=== PATIENT | male | born 1960 | race Caucasian/White ===

== ENCOUNTER 2017-12-23 01:07 | Inpatient (IN) | payer MEDICARE ==
[2017-12-23 01:07] VITALS: BMI 27.6
[2017-12-23 01:17] VITALS: RESP 16; TEMP 102.7; O2SAT 100
[2017-12-23] MEDS ORDERED: Propofol 10 mg/ml Inj (20 ML) ONE (01:19)
[2017-12-23 01:28] LABS: BASO # 0.1 K/uL (0.0-0.2); BASO % 0.3 % (0.0-2.0); EOS % 0.1 % (0.0-4.0); HEMOGLOBIN 7.2 g/dL (12.0-18.0); LYMPH # 0.4 K/uL (1.0-4.3); LYMPH % 2.1 % (20.0-40.0); MEAN CELL VOLUME 86.7 fL (80.0-94.0); MEAN CORPUSCULAR HEMOGLOBIN 29.5 pg (27.0-31.0); MONO # 0.5 K/uL (0.0-0.8); MONO % 2.6 % (0.0-10.0); NEUT # 17.2 K/uL (1.8-7.0); NEUT % 94.9 % (50.0-75.0); PLATELET COUNT 471 K/uL (130-400); RBC 2.44 Mil/uL (4.40-5.90); WHITE BLOOD COUNT 18.1 K/uL (4.8-10.8)
[2017-12-23] MEDS ORDERED: Piperacillin/Tazobact 3.375 gm 100 ML IVPB ONE (01:29)
--- NOTE | 2017-12-23 01:33 | C.PDOC ---
History Of Present Illness pt was found unresponsive , hypotensive at home. medics gave 1 500 cc nss bolus , mild improvement in blood pressure, started another 500cc of nss started. Received pt in respiratory distress, pt agonal. Time Seen by Provider: 12/23/17 01:30 Chief Complaint (Nursing): Altered Mental Status Past Medical History Reviewed: Historical Data, Nursing Documentation, Vital Signs Vital Signs: Last Vital Signs Temp 102.7 F H 12/23/17 01:46 Pulse 106 H 12/23/17 01:08 Resp 16 12/23/17 01:08 BP 74/44 L 12/23/17 01:08 Pulse Ox 100 12/23/17 02:38 - Medical History PMH: Diabetes, HTN Denies: Chronic Kidney Disease Surgical History: Tonsillectomy - [facility] Procedures CENTRAL VENOUS CATHETER PLACEMENT WITH GUIDANCE (12/15/14) Family History: States: No Known Family Hx - Social History Hx Alcohol Use: No (UNKNOWN) Hx Substance Use: No (UNKNOWN) - Immunization History Hx Tetanus Toxoid Vaccination: No (UNKNOWN) Hx Influenza Vaccination: No (UNKNOWN) Hx Pneumococcal Vaccination: No (UNKNOWN) Review Of Systems Review Of Systems: ROS cannot be obtained secondary to pt's inabilty to answer questions. Physical Exam - Physical Exam Appears: In Acute Distress Skin: Pale, Mottled Head: Normacephalic Eye(s): bilateral: Other (dilated) Oral Mucosa: Dry Lips: Other (dry) Neck: Supple Chest: Symmetrical, Other (port r chest) Cardiovascular: Rhythm Regular Respiratory: Decreased Breath Sounds, No Rales, Rhonchi, No Wheezing Gastrointestinal/Abdominal: Bowel Sounds (tympanic to percussion), Soft, Distention Back: Normal Inspection Extremity: No Pedal Edema Extremity: Bilateral: Atraumatic Pulses: Left Dorsalis Pedis: Normal, Right Dorsalis Pedis: Normal Neurological/Psych: Other (unresponsive, intubated) Gait: Unable To Assess ED Course And Treatment - Laboratory Results Result Diagrams: 12/23/17 01:25 12/23/17 01:25 ECG: Interpreted By Me, Viewed By Me ECG Rhythm: Sinus Tachycardia (111), Nonspecific Changes O2 Sat by Pulse Oximetry: 100 Pulse Ox Interpretation: Normal (via bvm) - Radiology CXR: Interpreted by Me, Viewed By Me CXR Interpretation: Yes: Other (ett in place, port r chest, diffuse mets). No: Cardiomegaly, Pnemothorax Progress Note: my palced an 18 fr ngt without difficulty. about 250 cc of coffee grounds emesis aspirated. prior to intubation pt did have some emesis with coffee grounds , which was aspirated. spoke with pt's sister. pt has terminal pancreatic cancer. spoke with son, who states that his father was last seen at baseline around 8 pm. 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 spoke with dr duque - icu- will come and see the pt in the ed. 2:35 pt after 6 l ns, still hypotensive, now bradycardic. 1 mg iv epi given Critical Care Time - Critical Care Note Total Time (in mins): 120 Documented critical care: time excludes all time spent performing seperately billable procedures. Endotracheal Intubation - Endotracheal Intubation Intubated With ETT Size: 75 Blade Type Used: Curved Indication: Respiratory Failure, Airway Protection Intubated: Orally Pre-Intubation Airway Assessment: Ventilated And Oxygenated, Does Not Appear To Have A Difficult Airway Paralyzed With: Succinylcholine Post-Intubation Assessment: ETT Secured AT (cm): (26), Breath Sounds Equal Bilat , Placement Confirmed Via CXR, Color Change W/End Tidal CO2 Detector, Oxygen Saturation: (94) Disposition Discussed With Dr.: Danny Vences Comment: accepted the pt on his service and took over the care at 2:30 AM Doctor Will See Patient In The: ED Counseled Patient/Family Regarding: Studies Performed, Diagnosis - Disposition Disposition: HOSPITALIZED Disposition Time: 01:30 Condition: CRITICAL - Clinical Impression Clinical Impression: Respiratory failure, UGI bleed, Pancreatic cancer, Sepsis Decision To Admit - Pt Status Changed To: Hospital Disposition Of: Inpatient - Admit Certification Admit to Inpatient:: After my assessment, the patient will require hospitalization for at least two midnights. This is because of the severity of symptoms shown, intensity of services needed, and/or the medical risk in this patient being treated as an outpatient. - InPatient: Physician Admission Certification:: After my assessment, the patient will require hospitalization for at least two midnights. This is because of the severity of symptoms shown, intensity of services needed, and/or the medical risk in this patient being treated as an outpatient. - . Bed Request Type: ICU Admitting Physician: Danny Vences Patient Diagnosis: Respiratory failure, UGI bleed, Pancreatic cancer, Sepsis
[2017-12-23 01:41] LABS: INR 1.9; PROTHROMBIN TIME 21.2 SECONDS (9.7-12.2)
[2017-12-23 01:42] LABS: ALB/GLOB RATIO 0.6 (1.0-2.1); ALBUMIN 1.5 g/dL (3.5-5.0); ALT/SGPT 34 U/L (21-72); AST/SGOT 36 U/L (17-59); BLOOD UREA NITROGEN 15 mg/dL (9-20); CALCIUM 6.9 mg/dl (8.6-10.4); GFR AFRICAN-AMERICAN > 60; GFR NON-AFRICAN AMERICAN > 60
[2017-12-23] MEDS ORDERED: Piperacill/Tazo 3.375gm in Dex 3.375 GM/50 ML BAG IVPB STA (01:46)
[2017-12-23] MEDS ORDERED: Vancomycin 1 gm/NS 200 ml 1 GM/200 ML BAG IVPB STA (01:46)
[2017-12-23] MEDS ORDERED: Sodium Chloride 0.9% 1,000 ML IV ONE (01:46)
[2017-12-23 01:51] LABS: VENOUS BLOOD GAS BASE EXCESS -11.9 mmol/L (0.0-2.0); VENOUS BLOOD GAS PCO2 31 mmHg (40-60); VENOUS BLOOD GAS PO2 80 mm/Hg (30-55); VENOUS BLOOD PH 7.26 (7.32-7.43)
[2017-12-23 01:54] LABS: URINE BILIRUBIN NEGATIVE (NEGATIVE); URINE BLOOD 1+ (NEGATIVE); URINE CLARITY Hazy (Clear); URINE COLOR Amber (YELLOW); URINE GLUCOSE (UA) 1+ mg/dL (Normal); URINE LEUKOCYTE ESTERASE NEG Leu/uL (Negative); URINE PROTEIN 2+ mg/dL (NEGATIVE); URINE UROBILINOGEN NORMAL mg/dL (0.2-1.0)
[2017-12-23 01:58] LABS: BANDS 8 % (0-2); LYMPHOCYTE 5 % (20-40); MONOCYTE 4 % (0-10); NEUTROPHIL 83 % (50-75); NUCLEATED RED BLOOD CELL 1 % (0-0); PLATELET ESTIMATE NORMAL (NORMAL); TOTAL CELLS COUNTED 100
[2017-12-23 01:59] LABS: ANISOCYTOSIS MODERATE; HYPOCHROMIC SLIGHT; POIKILOCYTOSIS MODERATE; POLYCHROMIC SLIGHT
[2017-12-23] MEDS ORDERED: EPINEPHrine 1 mg/ml (1:1000) Inj ONE (02:36)
[2017-12-23] MEDS ORDERED: Albumin Human 25% (12.5 gm/50 ml) IV ONE (03:00)
--- NOTE | 2017-12-23 03:56 | CP.PCM.CON ---
History of Present Illness - History of Present Illness History of Present Illness: 57 M with h/o hepc treated, hepato-biliary cancer, on chemo, without improvement , cachexia, was noticed slumped in the house, barely breathing. Patient brought in to the ER via ambulance, here noticed hypotensive, hypoxic, febrile 102F, was planned intubation. Coffee ground subscance noticed in the mouth, airway and NG suction. Labs showed anemia of 7.3g, hgb, albumin 1.5g. Urine out put per rubin 5ml. Discussed with Son and sister of patient mentioned, gradual decline, initial chemo didn't work, was going to try another chemo soon. Present in the family 1 sister, 1son and 1 brother, as per her the patients daughter and her had been involved in decision making. Poor prognosis discussed with family and family agreed for DNR, would also discuss in the whole family about palliative care. PMH as above PSH port in right chest Social live with son, ex alcoholism Review of Systems - Review of Systems All systems: reviewed and no additional remarkable complaints except (HPI) Past Patient History - Past Medical History & Family History Past Medical History?: Yes - Past Social History Smoking Status: Unknown If Ever Smoked Alcohol: Occasional - CARDIAC Hx Hypertension: Yes - PULMONARY Hx Respiratory Disorders: No - NEUROLOGICAL Hx Neurological Disorder: No - HEENT Hx HEENT Problems: No - RENAL Hx Chronic Kidney Disease: No - ENDOCRINE/METABOLIC Hx Diabetes Mellitus Type 2: Yes - HEMATOLOGICAL/ONCOLOGICAL Hx Blood Disorders: No - INTEGUMENTARY Hx Dermatological Problems: No - MUSCULOSKELETAL/RHEUMATOLOGICAL Hx Musculoskeletal Disorders: No - GASTROINTESTINAL Hx Gastrointestinal Disorders: No Hx Liver Failure: Yes ("LIVER CIRRHOSIS") - GENITOURINARY/GYNECOLOGICAL Hx Genitourinary Disorders: No - PSYCHIATRIC Hx Substance Use: No (UNKNOWN) - SURGICAL HISTORY Hx Tonsillectomy: Yes - ANESTHESIA Hx Anesthesia: (UNKNOWN) Meds Allergies/Adverse Reactions: Allergies Allergy/AdvReac Type Severity Reaction Status Date / Time No Known Allergies Allergy Verified 12/23/17 01:17 - Medications Medications: Current Medications Acetaminophen (Tylenol 325 Mg Supp) 975 mg [place] ONCE PRN PRN Reason: Fever >100.4 F Last Admin: 12/23/17 01:46 Dose: 975 mg Albumin Human (Albumin Human 25% (12.5 Gm/50 Ml)) 50 mls @ 50 mls/hr IV Q1H DIMITRIS Stop: 12/23/17 06:59 Doxycycline Hyclate 100 mg/ (Sodium Chloride) 100 mls @ 100 mls/hr IVPB Q12H DIMITRIS PRN Reason: Protocol Piperacillin Sod/Tazobactam Sod (Zosyn 2.25 Gm Iv Premix) 2.25 gm in 50 mls @ 100 mls/hr IVPB Q6H DIMITRIS PRN Reason: Protocol Pantoprazole Sodium (Protonix Inj) 40 mg IVP Q12H [facility] Physical Exam - Additional Findings Additional findings: * HEENT unresponsive, but also under effect of recent succinyl choline * Neck supple * Chest rattling noise b/l * CVS tachycardia sinus, no murmur or gallop * PA soft, nt bs present * Ext no edema * Skin dry * LAMP SHADE MAKER unresponsive Results - Vital Signs Recent Vital Signs: Last Vital Signs Temp 102.7 F H 12/23/17 01:46 Pulse 106 H 12/23/17 01:08 Resp 16 12/23/17 01:08 BP 74/44 L 12/23/17 01:08 Pulse Ox 100 12/23/17 03:12 - Labs Result Diagrams: 12/23/17 01:25 12/23/17 01:25 Labs: Laboratory Results - last 24 hr 12/23/17 12/23/17 12/23/17 01:25 01:25 01:25 WBC 18.1 H D RBC 2.44 L Hgb 7.2 L D Hct 21.1 L MCV 86.7 D MCH 29.5 MCHC 34.0 RDW 15.0 H Plt Count 471 H D MPV 7.0 L Neut % (Auto) 94.9 H Lymph % (Auto) 2.1 L Kane % (Auto) 2.6 Eos % (Auto) 0.1 Baso % (Auto) 0.3 Neut # (Auto) 17.2 H Lymph # (Auto) 0.4 L Kane # (Auto) 0.5 Eos # (Auto) 0.0 Baso # (Auto) 0.1 Neutrophils % (Manual) 83 H Band Neutrophils % 8 H Lymphocytes % (Manual) 5 L Monocytes % (Manual) 4 Nucleated RBC % 1 H Platelet Estimate Normal Polychromasia Slight Hypochromasia (manual) Slight Poikilocytosis (manual Moderate Anisocytosis (manual) Moderate PT 21.2 H INR 1.9 APTT 37 H pO2 VBG pH VBG pCO2 VBG HCO3 VBG Total CO2 VBG O2 Sat (Calc) VBG Base Excess VBG Potassium Glucose Lactate Crit Value Called To Crit Value Called By Crit Value Read Back Blood Gas Notified Time Sodium 131 L Potassium 3.9 Chloride 104 Carbon Dioxide 17 L Anion Gap 14 BUN 15 Creatinine 1.1 Est GFR ( Amer) > 60 Est GFR (Non-Af Amer) > 60 Random Glucose 93 Calcium 6.9 L Phosphorus 3.6 Magnesium 1.5 L Total Bilirubin 0.4 AST 36 ALT 34 Alkaline Phosphatase 263 H Total Protein 4.2 L Albumin 1.5 L D Globulin 2.6 Albumin/Globulin Ratio 0.6 L Venous Blood Potassium Urine Color Urine Clarity Urine pH Ur Specific [place] Urine Protein Urine Glucose (UA) Urine Ketones Urine Blood Urine Nitrate Urine Bilirubin Urine Urobilinogen Ur Leukocyte Esterase Urine WBC (Auto) Urine RBC (Auto) Hyaline Casts 12/23/17 12/23/17 01:42 01:45 WBC RBC Hgb Hct MCV MCH MCHC RDW Plt Count MPV Neut % (Auto) Lymph % (Auto) Kane % (Auto) Eos % (Auto) Baso % (Auto) Neut # (Auto) Lymph # (Auto) Kane # (Auto) Eos # (Auto) Baso # (Auto) Neutrophils % (Manual) Band Neutrophils % Lymphocytes % (Manual) Monocytes % (Manual) Nucleated RBC % Platelet Estimate Polychromasia Hypochromasia (manual) Poikilocytosis (manual Anisocytosis (manual) PT INR APTT pO2 80 H VBG pH 7.26 L VBG pCO2 31 L VBG HCO3 15.5 VBG Total CO2 14.9 L VBG O2 Sat (Calc) 94.1 H VBG Base Excess -11.9 L VBG Potassium 3.8 Glucose 86 Lactate 4.3 H* Crit Value Called To Dr. coker Crit Value Called By Sadie cummins rcp Crit Value Read Back Y Blood Gas Notified Time 152 Sodium 129.0 L Potassium Chloride 103.0 Carbon Dioxide Anion Gap BUN Creatinine Est GFR ( Amer) Est GFR (Non-Af Amer) Random Glucose Calcium Phosphorus Magnesium Total Bilirubin AST ALT Alkaline Phosphatase Total Protein Albumin Globulin Albumin/Globulin Ratio Venous Blood Potassium 3.8 Urine Color Lachelle Urine Clarity Hazy Urine pH 5.0 Ur Specific [place] 1.015 Urine Protein 2+ H Urine Glucose (UA) 1+ H Urine Ketones Negative Urine Blood 1+ H Urine Nitrate Negative Urine Bilirubin Negative Urine Urobilinogen Normal Ur Leukocyte Esterase Neg Urine WBC (Auto) 4 Urine RBC (Auto) 2 Hyaline Casts 6-10 H Assessment & Plan - Assessment and Plan (Free Text) Assessment: * Resp failure due to aspiration, of blood, vs pneumonia * Shock due to volume loss and low albmin. * History of Hep C, treated as per patient's sister. * Abdominal malignancy chemo be changed due to unresponsiveness * Severe anemia, due to blood loss, * Low blood protein due to above * Cachexia * Deconditioning. * Oliguria due to shock * DNR as per family request Plan: * Vent support * PRBC * PPI * Albumin 50g * Pressors * Abx, zosyn and doxycycline * Poor prognosis family leaning toward comfort care but could not make decision at the time.
[2017-12-23] MEDS ORDERED: Succinylcholine Chloride 20 mg/ml Syr (5 ml) IV ONE (04:30)
--- NOTE | 2017-12-23 04:45 | CP.PCM.PRO ---
Pronouncement of Note - Clinical Findings Physical Exam: No Response Verbal/Painful Stimuli, Absent Peripheral Pulses{ Carotid & Femoral}, Absent Heart & Breath Sounds, No Pupillary Light Reflex, No Corneal Reflex, Pupils Fixed & Dilated, Absence of Vital Signs - Pronouncement Time Time of Pronouncement of : 04:23 (am) - Notifications Pronouncement Notifications: Family Notified (by me at bedside), Atending Notified (By nursing) Head Turbine Operator Notified: Yes - Autopsy Autopsy Requested: No [place]: [id number] Additional Comments: Became hypotensive in ICU, didn't respond to levophed and epi, became bradycardic, PEA. Family was informed about this, he was made DNR few moments ago. Family at bedside during PEA and asystole.
[2017-12-23 07:37] VITALS: BP 43/25; PULSE 40
[2017-12-23] MEDS ORDERED: Piperacill/Tazo 2.25gm in Dex 2.25 GM/50 ML BAG IVPB SCH (08:00)
--- NOTE | 2017-12-23 09:22 | RAD ---
Date of service: 12/23/2017 HISTORY: Sepsis Patient COMPARISON: 12/17/2014 FINDINGS: LUNGS: Patchy opacities in the lungs noted more prominent on the left mid lung. The patient is status post intubation. The ET tube is seen at appropriate position. PLEURA: Blunting of the left costophrenic angle CARDIOVASCULAR: The cardiac silhouette is normal in size. OSSEOUS STRUCTURES: No significant abnormalities. VISUALIZED UPPER ABDOMEN: There is NG tube seen extending to the abdomen. OTHER FINDINGS: Right-sided Infusaport seen in place. IMPRESSION: New patchy opacities more prominent at the mid left lung since the previous exam. Blunting of the left costophrenic angle could be due to small pleural effusion. Appropriate position of the support devices.
--- NOTE | 2017-12-23 22:17 | CP.PCM.DIS ---
Provider - Provider Date of Admission: 12/23/17 02:24 Attending physician: Danny Vences MD Hospital Course - Lab Results Lab Results: Most Recent Lab Values WBC 18.1 K/uL (4.8-10.8) H D 12/23/17 01:25 RBC 2.44 Mil/uL (4.40-5.90) L 12/23/17 01:25 Hgb 7.2 g/dL (12.0-18.0) L D 12/23/17 01:25 Hct 21.1 % (35.0-51.0) L 12/23/17 01:25 MCV 86.7 fL (80.0-94.0) D 12/23/17 01:25 MCH 29.5 pg (27.0-31.0) 12/23/17 01:25 MCHC 34.0 g/dL (33.0-37.0) 12/23/17 01:25 RDW 15.0 % (11.5-14.5) H 12/23/17 01:25 Plt Count 471 K/uL (130-400) H D 12/23/17 01:25 MPV 7.0 fL (7.2-11.7) L 12/23/17 01:25 Neut % (Auto) 94.9 % (50.0-75.0) H 12/23/17 01:25 Lymph % (Auto) 2.1 % (20.0-40.0) L 12/23/17 01:25 [place] % (Auto) 2.6 % (0.0-10.0) 12/23/17 01:25 Eos % (Auto) 0.1 % (0.0-4.0) 12/23/17 01:25 Baso % (Auto) 0.3 % (0.0-2.0) 12/23/17 01:25 Neut # (Auto) 17.2 K/uL (1.8-7.0) H 12/23/17 01:25 Lymph # (Auto) 0.4 K/uL (1.0-4.3) L 12/23/17 01:25 [place] # (Auto) 0.5 K/uL (0.0-0.8) 12/23/17 01:25 Eos # (Auto) 0.0 K/uL (0.0-0.7) 12/23/17 01:25 Baso # (Auto) 0.1 K/uL (0.0-0.2) 12/23/17 01:25 Neutrophils % (Manual) 83 % (50-75) H 12/23/17 01:25 Band Neutrophils % 8 % (0-2) H 12/23/17 01:25 Lymphocytes % (Manual) 5 % (20-40) L 12/23/17 01:25 Monocytes % (Manual) 4 % (0-10) 12/23/17 01:25 Nucleated RBC % 1 % (0-0) H 12/23/17 01:25 Platelet Estimate Normal (NORMAL) 12/23/17 01:25 Polychromasia Slight 12/23/17 01:25 Hypochromasia (manual) Slight 12/23/17 01:25 Poikilocytosis (manual Moderate 12/23/17 01:25 Anisocytosis (manual) Moderate 12/23/17 01:25 PT 21.2 SECONDS (9.7-12.2) H 12/23/17 01:25 INR 1.9 12/23/17 01:25 APTT 37 SECONDS (21-34) H 12/23/17 01:25 pO2 80 mm/Hg (30-55) H 12/23/17 01:45 VBG pH 7.26 (7.32-7.43) L 12/23/17 01:45 VBG pCO2 31 mmHg (40-60) L 12/23/17 01:45 VBG HCO3 15.5 mmol/L 12/23/17 01:45 VBG Total CO2 14.9 mmol/L (22-28) L 12/23/17 01:45 VBG O2 Sat (Calc) 94.1 % (40-65) H 12/23/17 01:45 VBG Base Excess -11.9 mmol/L (0.0-2.0) L 12/23/17 01:45 VBG Potassium 3.8 mmol/L (3.6-5.2) 12/23/17 01:45 Sodium 129.0 mmol/l (132-148) L 12/23/17 01:45 Chloride 103.0 mmol/L (98-107) 12/23/17 01:45 Glucose 86 mg/dl (75-110) 12/23/17 01:45 Lactate 4.3 mmol/L (0.7-2.1) H* 12/23/17 01:45 Crit Value Called To Dr. coker 12/23/17 01:45 Crit Value Called By Sadie cummins rcp 12/23/17 01:45 Crit Value Read Back Y 12/23/17 01:45 Blood Gas Notified Time 152 12/23/17 01:45 Sodium 131 mmol/L (132-148) L 12/23/17 01:25 Potassium 3.9 mmol/L (3.6-5.2) 12/23/17 01:25 Chloride 104 mmol/L (98-107) 12/23/17 01:25 Carbon Dioxide 17 mmol/L (22-30) L 12/23/17 01:25 Anion Gap 14 (10-20) 12/23/17 01:25 BUN 15 mg/dL (9-20) 12/23/17 01:25 Creatinine 1.1 mg/dL (0.8-1.5) 12/23/17 01:25 Est GFR ( Amer) > 60 12/23/17 01:25 Est GFR (Non-Af Amer) > 60 12/23/17 01:25 Random Glucose 93 mg/dL (75-110) 12/23/17 01:25 Calcium 6.9 mg/dl (8.6-10.4) L 12/23/17 01:25 Phosphorus 3.6 mg/dL (2.5-4.5) 12/23/17 01:25 Magnesium 1.5 mg/dL (1.6-2.3) L 12/23/17 01:25 Total Bilirubin 0.4 mg/dL (0.2-1.3) 12/23/17 01:25 AST 36 U/L (17-59) 12/23/17 01:25 ALT 34 U/L (21-72) 12/23/17 01:25 Alkaline Phosphatase 263 U/L (38-126) H 12/23/17 01:25 Total Protein 4.2 g/dL (6.3-8.3) L 12/23/17 01:25 Albumin 1.5 g/dL (3.5-5.0) L D 12/23/17 01:25 Globulin 2.6 gm/dL (2.2-3.9) 12/23/17 01:25 Albumin/Globulin Ratio 0.6 (1.0-2.1) L 12/23/17 01:25 Venous Blood Potassium 3.8 mmol/L (3.6-5.2) 12/23/17 01:45 Urine Color Lachelle (YELLOW) 12/23/17 01:42 Urine Clarity Hazy (Clear) 12/23/17 01:42 Urine pH 5.0 (5.0-8.0) 12/23/17 01:42 Ur Specific [place] 1.015 (1.003-1.030) 12/23/17 01:42 Urine Protein 2+ mg/dL (NEGATIVE) H 12/23/17 01:42 Urine Glucose (UA) 1+ mg/dL (Normal) H 12/23/17 01:42 Urine Ketones Negative mg/dL (NEGATIVE) 12/23/17 01:42 Urine Blood 1+ (NEGATIVE) H 12/23/17 01:42 Urine Nitrate Negative (NEGATIVE) 12/23/17 01:42 Urine Bilirubin Negative (NEGATIVE) 12/23/17 01:42 Urine Urobilinogen Normal mg/dL (0.2-1.0) 12/23/17 01:42 Ur Leukocyte Esterase Neg Divine/uL (Negative) 12/23/17 01:42 Urine WBC (Auto) 4 /hpf (0-5) 12/23/17 01:42 Urine RBC (Auto) 2 /hpf (0-3) 12/23/17 01:42 Hyaline Casts 6-10 /lpf (0-2) H 12/23/17 01:42 Blood Type A POSITIVE 12/23/17 02:20 Antibody Screen Negative 12/23/17 02:20 - Hospital Course Hospital Course: 57 M with h/o hepc treated, hepato-biliary cancer, on chemo, without improvement , cachexia, was noticed slumped in the house, barely breathing. Patient brought in to the ER via ambulance, here noticed hypotensive, hypoxic, febrile 102F, was planned intubation. Coffee ground subscance noticed in the mouth, airway and NG suction. Labs showed anemia of 7.3g, hgb, albumin 1.5g. Urine out put per rubin 5ml. Discussed with Son and sister of patient mentioned, gradual decline, initial chemo didn't work, was going to try another chemo soon. Present in the family 1 sister, 1son and 1 brother, as per her the patients daughter and her had been involved in decision making. Poor prognosis discussed with family and family agreed for DNR, would also discuss in the whole family about palliative care. PMH as above PSH port in right chest Social live with son, ex alcoholism Assessment & Plan - Assessment and Plan (Free Text) Assessment: * Resp failure due to aspiration, of blood, vs pneumonia * Shock due to volume loss and low albmin. * History of Hep C, treated as per patient's sister. * Abdominal malignancy chemo be changed due to unresponsiveness * Severe anemia, due to blood loss, * Low blood protein due to above * Cachexia * Deconditioning. * Oliguria due to shock * DNR as per family request Plan: * Vent support * PRBC * PPI * Albumin 50g * Pressors * Abx, zosyn and doxycycline * Poor prognosis family leaning toward comfort care but could not make decision at the time. Pronouncement of Note - Clinical Findings Physical Exam: No Response Verbal/Painful Stimuli, Absent Peripheral Pulses{ Carotid & Femoral}, Absent Heart & Breath Sounds, No Pupillary Light Reflex, No Corneal Reflex, Pupils Fixed & Dilated, Absence of Vital Signs - Pronouncement Time Time of Pronouncement of : 04:23 (am) - Notifications Pronouncement Notifications: Family Notified (by me at bedside), Atending Notified (By nursing) Auto Repair Technician Notified: Yes - Autopsy Autopsy Requested: No [place]: [id number] Additional Comments: Became hypotensive in ICU, didn't respond to levophed and epi, became bradycardic, PEA. Family was informed about this, he was made DNR few moments ago. Family at bedside during PEA and asystole. Discharge Plan - Follow Up Plan Condition: CRITICAL Disposition: WITH WITHOUT AUTOPSY
--- NOTE | 2017-12-24 23:11 | CARD ---
APPROVED REPORT Date of service: 12/23/2017 EKG Measurement Heart [id number] <Conclusion> Sinus tachycardia Possible Left atrial enlargement Inferior infarct, age undetermined Abnormal ECG
== END 2017-12-23 04:23 | DRG 208 ==
LOC: C.ER 01:07 → C.9I 02:24
PROVIDERS: ADMIT Internal Medicine; ATTEND Internal Medicine
PROC: 5A1935Z Respiratory Ventilation, Less than 24 Consecutive Hours (ICD-10-PCS; principal; 2017-12-23)
PROC: 0BH17EZ Insertion of Endotracheal Airway into Trachea, Via Natural or Artificial Opening (ICD-10-PCS; 2017-12-23)
DX: J96.91 Respiratory failure, unspecified with hypoxia (principal); A41.9 Sepsis, unspecified organism; J69.8 Pneumonitis due to inhalation of other solids and liquids; C25.9 Malignant neoplasm of pancreas, unspecified; C24.9 Malignant neoplasm of biliary tract, unspecified; R57.9 Shock, unspecified; K92.0 Hematemesis; R64 Cachexia; D50.0 Iron deficiency anemia secondary to blood loss (chronic); I95.9 Hypotension, unspecified; R00.1 Bradycardia, unspecified; E11.9 Type 2 diabetes mellitus without complications; I10 Essential (primary) hypertension; E86.9 Volume depletion, unspecified; K74.60 Unspecified cirrhosis of liver; R41.82 Altered mental status, unspecified; R34 Anuria and oliguria; B18.2 Chronic viral hepatitis C; Z66 Do not resuscitate